=== PATIENT | female | born 1965 | race African-American/Black ===

== ENCOUNTER 2017-10-06 06:29 | Inpatient (IN) | payer OTHER ==
[2017-10-01 13:58] VITALS: BMI 45.5
[2017-10-06] MEDS ORDERED: BUPIVACAINE HCL/PF 0.5% (5MG/ML) 10 ML VIAL ONE (07:10)
[2017-10-06] MEDS ORDERED: ePHEDrine SULFATE 50 MG/1 ML AMPULE ONE (07:13)
[2017-10-06] MEDS ORDERED: ROCURONIUM BROMIDE 50 MG/5 ML VIAL ONE ×2 (07:14→08:44)
[2017-10-06] MEDS ORDERED: MIDAZOLAM HCL 2 MG/2 ML SINGLE DOSE VIAL ONE (07:14)
[2017-10-06] MEDS ORDERED: SUCCINYLCHOLINE CHLORIDE 200 MG/10 ML VIAL ONE (07:14)
[2017-10-06] MEDS ORDERED: PROPOFOL 20 ML ONE ×3 (07:14)
[2017-10-06] MEDS ORDERED: LIDOCAINE HCL/PF 2% SDV 5ML VIAL ONE (07:17)
[2017-10-06] MEDS ORDERED: ceFAZolin SODIUM 1 GM VIAL ONE (07:17)
[2017-10-06] MEDS ORDERED: DEXAMETHASONE SOD PHOSPHATE 4 MG/1 ML VIAL ONE (07:17)
[2017-10-06] MEDS ORDERED: KETOROLAC TROMETHAMINE 30 MG/1 ML VIAL ONE (07:17)
--- NOTE | 2017-10-06 08:06 | HP ---
Admitting History and Physical - Admission History of Present Illness: Morbid obesity History Source: Patient Limitations to Obtaining History: No Limitations - Past Medical History Cardiovascular: Yes: HTN, Hyperlipdemia Renal/: Yes: Other (Urinary incontinence) Endocrine: Yes: Diabetes Mellitus Additional Past Medical History: Glaucoma Osteoarthritis Endometriosis - Past Surgical History Past Surgical History: Yes: Arthrosocopy (Left knee), , Hysterectomy, Tubal Ligation Additional Past Surgical History: Laser bilateral eyes for glaucoma - Smoking History Smoking history: Never smoked Have you smoked in the past 12 months: No Aproximately how many cigarettes per day: 0 - Alcohol/Substance Use Hx Alcohol Use: No Home Medications - Allergies Allergies/Adverse Reactions: Allergies Allergy/AdvReac Type Severity Reaction Status Date / Time No Known Allergies Allergy Verified 10/06/17 07:33 - Home Medications Home Medications: Ambulatory Orders Canagliflozin [Invokana] 300 mg PO DAILY 10/01/17 Ibuprofen [Motrin -] 800 mg PO TID PRN 10/01/17 Lisinopril [Zestril] 2.5 mg PO DAILY 10/01/17 Metformin HCl [Metformin HCl ER] 1,000 mg PO BID 10/01/17 Simvastatin 40 mg PO DAILY 10/01/17 Sitagliptin Phosphate [Januvia] 100 mg PO DAILY 10/01/17 Family Disease History - Family Disease History Family History: Denies Review of Systems - Review of Systems Constitutional: denies: Chills, Fever HENT: reports: No Symptoms Neck: reports: No Symptoms Cardiovascular: denies: Chest Pain Respiratory: denies: Cough Gastrointestinal: denies: Abdominal Pain Neurological: denies: Change in LOC Pain Intensity: 0 Physical Examination Vital Signs: Vital Signs Temperature 98.3 F 10/06/17 07:25 Pulse Rate 84 10/06/17 07:25 Respiratory Rate 20 10/06/17 07:25 Blood Pressure 123/70 10/06/17 07:25 O2 Sat by Pulse Oximetry (%) 97 10/06/17 07:24 Constitutional: Yes: Calm HENT: Yes: WNL Neck: Yes: Supple Cardiovascular: Yes: WNL Respiratory: Yes: Regular Gastrointestinal: Yes: Soft, Abdomen, Obese. No: Tenderness Neurological: Yes: Alert, Oriented Problem List - Problems (1) Morbid obesity due to excess calories Code(s): E66.01 - MORBID (SEVERE) OBESITY DUE TO EXCESS CALORIES Assessment/Plan For Robotic possible open vertical sleeve gastrectomy, possible liver biopsy, upper endoscopy
[2017-10-06] MEDS ORDERED: ceFAZolin SODIUM 1 GM VIAL IVPB ONE (08:35)
[2017-10-06] MEDS ORDERED: BUPIVACAINE HCL/PF 0.5% (5MG/ML) 10 ML VIAL IJ ONE (09:26)
[2017-10-06] MEDS ORDERED: NEOSTIGMINE METHYLSULFATE 0.5 MG/ML - 10 ML MDV ONE (10:35)
[2017-10-06] MEDS ORDERED: GLYCOPYRROLATE 0.2 MG/1 ML VIAL ONE (10:35)
[2017-10-06] MEDS ORDERED: HYDROmorphone HCL CARPU-JECT 1 MG/1 ML DISP.SYRIN IVPB PRN (11:10)
[2017-10-06] MEDS ORDERED: PROMETHAZINE HCL 25 MG/1 ML VIAL IVPB PRN (11:13)
[2017-10-06] MEDS ORDERED: ONDANSETRON 4 MG/2 ML VIAL IVPUSH SCH (11:15)
[2017-10-06] MEDS ORDERED: LACTATED RINGERS SOLUTION 1,000 ML IV SCH (11:15)
[2017-10-06] MEDS ORDERED: METOCLOPRAMIDE HCL INJECTION 10 MG/2 ML VIAL IVPUSH SCH (11:15)
[2017-10-06] MEDS: ACETAMINOPHEN 1000 MG/100 ML VIAL (NON FORMULARY) IVPB SCH ×3 (11:30→22:31)
[2017-10-06 11:40] LABS: HEMATOCRIT 41.7 % (32.4-45.2); HEMOGLOBIN 12.8 GM/dL (10.7-15.3); MCH 23.8 pg (25.7-33.7); MCHC 30.7 g/dl (32.0-36.0); MEAN CELL VOLUME 77.5 fl (80-96); PLATELET COUNT 247 K/MM3 (134-434); RBC 5.38 M/mm3 (3.60-5.2); RDW 14.5 % (11.6-15.6); WHITE BLOOD COUNT 18.3 K/mm3 (4.0-10.0)
--- NOTE | 2017-10-06 11:40 | OP ---
Operative Note - Note: Operative Date: 10/06/17 Pre-Operative Diagnosis: morbid obesity Operation: robotic assisted vertical sleeve gasrectomy, endoscopy, lysis of adhesions, liver biopsy Surgeon: Andres Jimenez Glass Mechanic: Erica Aly Anesthesiologist/CLINICAL EDUCATION ASSISTANT: Grey Hillman Anesthesia: General Specimens Removed: liver biospy Estimated Blood Loss (mls): 100 Fluid Volume Replaced (mls): 1,600 Operative Report Dictated: Yes
--- NOTE | 2017-10-06 11:41 | SURG ---
Surgery Yard Switcher Note Yard Switcher: Erica Aly PA-C Date of Service: 10/06/17 Diagnosis: morbid obesity Procedure: robotic assisted vertical sleeve gastrectomy, lysis of adhesions, liver biopsy, endoscopy I was present for the entirety of the operative procedure. For further detail, please refer to operative report. Visit type - Case Type Case Type: ED Admission - Emergency Emergency Visit: Yes ED Registration Date: 10/06/17 Care time: The patient presented to the Emergency Department on the above date and was hospitalized for further evaluation of their emergent condition. - New patient This patient is new to me today: Yes Date on this admission: 10/06/17
[2017-10-06 12:34] LABS: ALBUMIN 3.1 g/dl (3.4-5.0); ALK PHOS 109 U/L (45-117); ANION GAP 9 (8-16); BILIRUBIN,TOTAL 0.3 mg/dL (0.2-1.0); BLOOD UREA NITROGEN 11 mg/dL (7-18); CALCIUM 8.7 mg/dL (8.5-10.1); CHLORIDE 102 mmol/L (98-107); CO2 27 mmol/L (21-32); CREATININE 0.8 mg/dL (0.55-1.02); GLUCOSE,RANDOM 233 mg/dL (74-106); POTASSIUM 4.5 mmol/L (3.5-5.1); SGOT/AST 135 U/L (15-37); SGPT/ALT 123 U/L (12-78); SODIUM 138 mmol/L (136-145); TOT PROT 7.1 g/dl (6.4-8.2)
[2017-10-06] MEDS: SODIUM CHLORIDE 1,000 ML IV SCH (13:51)
--- NOTE | 2017-10-06 14:54 | SPEC ---
DATE OF OPERATION: 10/06/2017 SURGEON: Andres Jimenez MD HOSPICE CONSULTANT: PAUL Bynum PREOPERATIVE DIAGNOSES: 1. Morbid obesity. 2. Hypertension. 3. Diabetes. 4. Body mass index greater than 40. POSTOPERATIVE DIAGNOSES: 1. Morbid obesity. 2. Diabetes. 3. Hypertension. 4. Body mass index greater than 40. 5. Hepatomegaly. PROCEDURE: Robotic vertical sleeve gastrectomy, robotic wedge liver biopsy, and upper endoscopy. REASON FOR PROCEDURE: This is a 52-year-old female who presented to the office for options for weight loss. She decided to proceed with a robotic vertical sleeve gastrectomy, possible open, possible liver biopsy, possible endoscopy. The risks and benefits of the procedure were explained. RISKS AND BENEFITS: After describing the different options for management of weight loss, the patient decided to proceed with a robotic laparoscopic, possible open vertical sleeve gastrectomy. The patient was seen by the respective subspecialities and cleared for surgery. The risks and benefits of the procedure were explained. These included bleeding, infection, hernia, ND, DVT, PE, injury to surrounding structures including the liver, colon, bowel, spleen, esophagus, vessel injury, nerve injury, weight regain, gastric leak, staple line leak, sleeve leak, obstruction, vitamin deficiency, hair loss, and as some of the possible complications. The patient understood and signed informed consent. DESCRIPTION OF PROCEDURE: The patient was placed supine on the operating room table. The patient underwent general endotracheal intubation. A Kamara catheter was inserted by the nursing staff. The arms were brought out at 90 degrees and secured. A foot board was placed and the legs were secured laterally with padding. The abdomen was prepped and draped in the usual sterile fashion. A time-out was performed. An incision was made superior and to the left of the umbilicus. A Veress needle was inserted. Pneumoperitoneum was established. Subsequently the Veress needle was removed. An 8-mm robotic trocar was placed under direct visualization with the laparoscope. Inspection of the abdominal cavity was performed. An 8-mm trocar was then placed in the left abdominal wall approximately 6 to 7 cm to the left of the initial trocar. An 8-mm robotic trocar was then placed in the left abdominal wall approximately 6 to 7 cm to the left of the initial trocar. A 12-mm robotic trocar was then placed in the right abdominal wall approximately 6 to 7 cm to the right of the initial trocar and an 8-mm robotic trocar placed approximately 6 to 7 cm lateral to the 12-mm trocar. A stab wound was made in the subxiphoid area and a Jessica clamp inserted and removed to dilate the tract. A Renee liver retractor was inserted. The post was secured at the bedside by the nursing staff. The patient was placed in steep reverse Trendelenburg position and the Renee liver retractor was used to secure the liver towards the anterior abdominal wall. The robot was brought over the field and docked. Dissection was performed at the console. The pylorus was identified and 6 cm proximal to it the lesser sac was entered using the vessel sealer. From this point cephalad all lateral attachments to the greater curvature of the stomach including the short gastric vessels were ligated using the vessel sealer towards the gastrosplenic and gastrophrenic ligaments. Once this was done in its entirety, all tubes within the nasal or oropharyngeal cavity including a temperature probe was confirmed to be removed by Anesthesia. The bougie was then inserted by Anesthesia. Transection of the stomach was then begun staying adjacent to the bougie, but away from the angularis. Transection of the stomach was performed near the portion of the stomach where the lesser sac was entered. Two robotic green rose were used at this location. Robotic blue rose were then used for the remainder of the transection until the greater curvature of the stomach was fully transected. Again this was done staying close to the bougie. Care was taken to stay away from the angle of His cephalad. The staple line was then inspected. Hemostasis was identified. A leak test was then performed. The stomach was clamped distally to the staple line. Irrigation solution was placed in the left upper quadrant and air insufflated by Anesthesia into the sleeve. No leaks were identified and no obstruction was identified. This was done throughout the staple line. At this point, the irrigation solution was suctioned and again hemostasis noted. A wedge liver biopsy was then performed. A portion of the left lobe of the liver was identified and an edge of it grasped. Using electrocautery a wedge of this portion of the liver was excised. The specimen was removed from the abdominal cavity and sent off the field. Hemostasis of the biopsy site as attained using electrocautery. The robotic instruments were then removed. The robot was undocked from the operative field. The 12-mm robotic trocar was removed and the greater curvature specimen removed from this site using a sponge stick llanos. The specimen was inspected and the Veress needle inserted. The specimen insufflated adequately and no leak was identified. The staple line was noted to be straight and intact. A Flex-Albert device was then used to close the fascia with a 0 Vicryl suture at this site. The liver retractor was removed under direct visualization. Pneumoperitoneum was desufflated and the fascial suture was secured. Hemostasis was noted at all incision sites and Marcaine was injected at all incision sites. All incision sites were closed using 4-0 Biosyn. Sterile dressings were applied. The patient tolerated the procedure well and was transferred to the recovery room in stable condition with a Kamara catheter intact. The patient was transferred to telemetry for further monitoring. In addition, in order to further evaluate for leak/obstruction, upper endoscopy was performed. The endoscope was inserted into the patient's esophagus, GE junction, and gastric pouch. The entirety of the gastric sleeve was inspected. No leak or obstruction was noted. The stomach was suctioned, decompressed, and the endoscope removed. Sean [id number]
--- NOTE | 2017-10-06 15:28 | OP ---
DATE OF OPERATION: 10/06/2017 ADDENDUM POSTOPERATIVE DIAGNOSES: 1. Morbid obesity. 2. Hypertension. 3. Diabetes. 4. Body mass index greater than 40. 5. Hepatomegaly. PROCEDURES: 1. Robotic vertical sleeve gastrectomy. 2. Robotic wedge liver biopsy. 3. Upper endoscopy. SPECIMEN: 1. Greater curvature of the stomach. 2. Left lobe wedge liver biopsy. ESTIMATED BLOOD LOSS: 100 mL. DRAINS: None. ANESTHESIA: GET. BOUGIE: 36-Czech. Sean [id number]
[2017-10-06] MEDS: METOCLOPRAMIDE HCL INJECTION 10 MG/2 ML VIAL IVPUSH SCH ×2 (17:30→21:26)
[2017-10-06] MEDS ORDERED: ONDANSETRON 4 MG/2 ML VIAL ONE (17:58)
[2017-10-06] MEDS ORDERED: METOCLOPRAMIDE HCL INJECTION 10 MG/2 ML VIAL ONE (17:58)
[2017-10-06] MEDS: ONDANSETRON 4 MG/2 ML VIAL IVPUSH SCH ×2 (18:04→21:28)
[2017-10-06] MEDS ORDERED: ACETAMINOPHEN INJECTION 100 ML IVPB ONE (18:06)
[2017-10-06] MEDS ORDERED: HYDROmorphone HCL CARPU-JECT 2 MG/1 ML DISP.SYRIN ONE (18:19)
[2017-10-06] MEDS: INSULIN SLIDING SCALE (NOVOLOG) 1 VIAL SQ SCH (21:25)
[2017-10-06] MEDS: ENOXAPARIN NA (PORCINE) 40 MG/0.4 ML DISP.SYRIN SQ SCH (21:27)
[2017-10-06] MEDS ORDERED: PT OWN MED DRAWER 7, Y5N ONE (21:28)
[2017-10-06] MEDS ORDERED: FAMOTIDINE 20 MG/50 ML IVPB 20 MG/50 ML MG IVPB SCH (22:00)
[2017-10-07] MEDS: SODIUM CHLORIDE 1,000 ML IV SCH ×3 (01:09→17:43)
[2017-10-07] MEDS: METOCLOPRAMIDE HCL INJECTION 10 MG/2 ML VIAL IVPUSH SCH ×4 (02:21→20:43)
[2017-10-07] MEDS: ONDANSETRON 4 MG/2 ML VIAL IVPUSH SCH ×6 (02:21→21:10)
[2017-10-07] MEDS: HYDROmorphone HCL CARPU-JECT 2 MG/1 ML DISP.SYRIN IVPB PRN ×2 (02:34→09:51)
[2017-10-07] MEDS: ACETAMINOPHEN 1000 MG/100 ML VIAL (NON FORMULARY) IVPB SCH (05:22)
[2017-10-07 07:48] LABS: HEMATOCRIT 38.3 % (32.4-45.2); MCH 24.2 pg (25.7-33.7); MCHC 31.3 g/dl (32.0-36.0); MEAN CELL VOLUME 77.4 fl (80-96); MEAN PLT VOLUME 9.1 fl (7.5-11.1); PLATELET COUNT 231 K/MM3 (134-434); RBC 4.95 M/mm3 (3.60-5.2); RDW 14.5 % (11.6-15.6); WHITE BLOOD COUNT 16.8 K/mm3 (4.0-10.0)
[2017-10-07 08:07] LABS: ALBUMIN 2.9 g/dl (3.4-5.0); ANION GAP 10 (8-16); BLOOD UREA NITROGEN 11 mg/dL (7-18); CALCIUM 8.5 mg/dL (8.5-10.1); CHLORIDE 104 mmol/L (98-107); CO2 27 mmol/L (21-32); GLUCOSE,RANDOM 123 mg/dL (74-106); POTASSIUM 4.1 mmol/L (3.5-5.1); SODIUM 141 mmol/L (136-145)
[2017-10-07 08:12] LABS: ALK PHOS 99 U/L (45-117); BILIRUBIN,TOTAL 0.6 mg/dL (0.2-1.0); CREATININE 0.7 mg/dL (0.55-1.02); SGOT/AST 274 U/L (15-37); SGPT/ALT 237 U/L (12-78); TOT PROT 6.9 g/dl (6.4-8.2)
--- NOTE | 2017-10-07 08:39 | PN ---
Progress Note (short form) - Note Progress Note: POD #1 Alert. Doing well. C/o mild incisional tenderness. Adequate pain control via prn meds. AVSS. Afebrile. Gen: alert. NAD ABD: all surgical ports c/d/i. LE: scds bilat. nt <Gibran Boyce P - Last Filed: 10/07/17 08:39> - Note Progress Note: POD 1 Pain controlled No nausea Vital Signs Period Temp Pulse Resp BP Sys/Fitzpatrick Pulse Ox Last 24 Hr 97.9 F-98.8 F 72-99 16-20 100-146/45-82 97-100 Abd soft CBC, BMP 10/07/ 05:05 10/07/17 05:05 UGI: contrast in antrum Repeat AXR in 2 hours- if contrast in small bowel, start clears <Andres Jimenez - Last Filed: 10/07/17 11:17> Problem List - Problems (1) Morbid obesity due to excess calories Assessment/Plan: POD #1 s/p robotic assisted vertical sleeve gasrectomy, endoscopy, lysis of adhesions, liver biopsy f/u UGI, if neg start on bariatric stage 1 diet Pain management prn OOB and ambulate dc planning Code(s): E66.01 - MORBID (SEVERE) OBESITY DUE TO EXCESS CALORIES <Gibran Boyce P - Last Filed: 10/07/17 08:39> - Problems (1) Morbid obesity due to excess calories Code(s): E66.01 - MORBID (SEVERE) OBESITY DUE TO EXCESS CALORIES <Andres Jimenez - Last Filed: 10/07/17 11:17>
--- NOTE | 2017-10-07 08:46 | PN ---
Progress Note (short form) - Note Progress Note: Anesthesia post op note. POD#1. S/P robotic assisted vertical sleeve gasrectomy, endoscopy, lysis of adhesions, liver biopsy. GA. Pat seen amd examined. VSS. No apparent anesthesia related complications. Signed off.
[2017-10-07] MEDS: ENOXAPARIN NA (PORCINE) 40 MG/0.4 ML DISP.SYRIN SQ SCH ×2 (10:49→21:10)
--- NOTE | 2017-10-07 11:19 | DS ---
Physical Examination Vital Signs: Vital Signs Temperature 98.4 F 10/07/17 05:31 Pulse Rate 81 10/07/17 05:31 Respiratory Rate 20 10/07/17 06:44 Blood Pressure 100/57 10/07/17 05:31 O2 Sat by Pulse Oximetry (%) 100 10/07/17 06:44 Constitutional: Yes: Calm Neck: Yes: WNL Cardiovascular: Yes: Regular Rate and Rhythm Respiratory: Yes: CTA Bilaterally Gastrointestinal: Yes: Soft Wound/Incision: Yes: Dressing Dry and Intact Neurological: Yes: Alert, Oriented Labs: CBC, BMP 10/07/17 05:05 10/07/17 05:05 Discharge Summary Reason For Visit: MORBID (SEVERE) OBESITY DUE TO EXCESS CALORIES Current Active Problems BMI 45.0-49.9, adult (Acute) Diabetes mellitus (Acute) Hepatomegaly (Acute) Hypertension (Acute) Morbid obesity due to excess calories (Acute) Procedures: Principal: Sleeve gastrectomy, wedge liver biopsy, EGD Condition: Stable - Instructions Diet, Activity, Other Instructions: [address] [place] [address] Andres Jimenez M.D. [address] [place] [address], [address] [facility] [address] [facility] [place] [address] Robotic, Bariatric and General Surgery Postoperative Instructions for Bariatric Surgery Activity: Resume normal everyday activity as tolerated. You may walk and climb stairs without any limitation. We encourage you to walk as often as you can Do not lift anything more than 10 pounds for 8 weeks. At that time, you can return to full activity, including the gym, without limitation. Do not drive a motor vehicle while taking prescribes narcotic pain medication. Wound Care: If you have a bandage in place, leave it on for 3 days. At that time you may remove the outer bandage. If there are strips of tape on the skin after removing the outer bandage, leave them in place. They will fall off by themselves. Do not remove them. If there is clear glue on the skin after removing the outer bandage, leave it in place. Do not pick at it or peel it off. You may shower after taking the outer bandage off, 3 days after your surgery. If incisions become red, warm or open, please call the office. Diet: Continue a sugar-free, non-carbonated Clear liquid diet three times a day for the first week-Stage I diet. In addition, you should drink 8 ounces of water every hour. When drinking, sips should be slow and steady, not large and quick. After the first week, call the office to be advanced to the next dietary stage. Do not advance stages until instructed. Your diet will be advanced over the phone each week. Medications/Pain Management: You may resume previous medications unless told otherwise. The pills may be swallowed whole or broken if scored. You may take the prescribed narcotic pain medication as needed. If the narcotic medication is not needed for pain control, you may take Tylenol. Avoid all other pain medications including Advil, Ibuprofen, Motrin, Aspirin, Naprosyn, Aleve, Celebrex. You will receive Pepcid. Please take this twice a day as prescribed. Dizziness,Headaches/Gas Pain: Make sure you are getting enough fluids daily. Patients on diuretics or water pills may need medication adjusted. Some fluids such as broth or Gatorade may help. Gas pains are common in the first few weeks after surgery. At times they can be worse than surgical pain. Walking can help. You can also use Mylanta, Maalox, or Gas-X. Vomiting/Nausea: This may occur if you eat too fast, don't chew, or eat too much. Go back to fluids. If the vomiting or nausea persists, call the office. Constipation/Diarrhea: You may experience a change in bowel habits. Many things affect this, including a decrease in food intake, not enough fluid and taking pain medication. Some people experience diarrhea after the barium swallow in x-ray. If either persist, call the office. Follow up: Call the office at [phone] for an appointment 2 weeks after your surgical procedure. Disposition: HOME - Home Medications Comprehensive Discharge Medication List: Ambulatory Orders Canagliflozin [Invokana] 300 mg PO DAILY 10/01/17 Ibuprofen [Motrin -] 800 mg PO TID PRN 10/01/17 Lisinopril [Zestril] 2.5 mg PO DAILY 10/01/17 Metformin HCl [Metformin HCl ER] 1,000 mg PO BID 10/01/17 Simvastatin 40 mg PO DAILY 10/01/17 Sitagliptin Phosphate [Januvia] 100 mg PO DAILY 10/01/17 Famotidine [Pepcid] 20 mg PO BID #60 tablet 10/06/17 Oxycodone HCl/Acetaminophen [Percocet 5-325 mg Tablet] 1 - 2 tab PO Q6H #28 tab MDD 4 10/06/17
[2017-10-07] MEDS: INSULIN SLIDING SCALE (NOVOLOG) 1 VIAL SQ SCH ×2 (12:36→17:43)
--- NOTE | 2017-10-07 15:32 | PATH ---
Surgical Pathology Report Patient Name: ROSA LONG [facility]. Rec. #: [id number] /Age/Gender: 1965 (Age: 52) / F Account: [id number] Location: 4 W TELEMETRY U Taken: 10/06/2017 Received: 10/06/2017 Reported: 10/07/2017 Physicians: Andres Jimenez M.D. Specimen(s) Received A: GREATER CURVATURE OF STOMACH B: LIVER BIOPSY Clinical History Severe morbid obesity Final Diagnosis A. STOMACH, GREATER CURVATURE, LAPAROSCOPIC VERTICAL SLEEVE GASTRECTOMY: PORTION OF STOMACH WITH MILD CHRONIC GASTRITIS. IMMUNOHISTOCHEMICAL STAIN FOR H. PYLORI IS NEGATIVE. B. LIVER, BIOPSY: STEATOHEPATITIS, MILD; MODERATE STEATOSIS (~50%). MILD PERIVENULAR, MILD PERISINUSOIDAL, PORTAL AND FOCAL PERIPORTAL FIBROSIS (STAGE I OF 4). SEE COMMENT. Comment: Biopsy is subcapsular with areas of thermal artifact. The liver parenchyma demonstrates moderate mixed macro and macrovesicular steatosis (~50%). Focal lymphocytic infiltrate is seen in portal tracts. No significant interface activity is present. No significant bile injury is seen. No granulomas are present. Focal hepatocyte ballooning is noted. No definitive Myla hyaline is identified. The trichrome stain highlights mild perivenular, mild perisinusoidal, portal and focal mild periportal fibrosis. No increase in iron seen by Iron special stain. Overall, findings show mild steatohepatitis and moderate steatosis; stage 1 of 4 (Brunt). Etiologies include alcoholic and non-alcoholic liver injury including metabolic conditions, drug or toxin injury. Suggest clinical and serologic correlation. Electronically Signed Sheri Raza M.D. Gross Description A. Received in formalin, labeled "greater curvature of stomach," is a 96 gram, 18.5 x 3.0 x 2.5 cm. portion of stomach with a stapled margin of resection. The serosa is pires-leon with minimal attached fat. The mucosa is pires-pink with normal folds. No mucosal masses are identified. Server Security Administrator sections are submitted in one cassette. B. Received in formalin labeled "liver biopsy," is a 2.3 x 1.2 x 0.6 cm pires-pink, irregular portion of soft tissue, consistent with a liver biopsy. The specimen is bisected and entirely submitted in one cassette. DL/10/06/2017 [facility]10/06/2017
[2017-10-07] MEDS ORDERED: oxyCODONE HCL 5 MG TABLET PO PRN (16:45)
[2017-10-07] MEDS ORDERED: ACETAMINOPHEN 325 MG TABLET (FP) PO PRN (16:45)
[2017-10-07] MEDS: FAMOTIDINE IV 20 MG/12 ML VIAL IVPB SCH (21:44)
[2017-10-08] MEDS: SODIUM CHLORIDE 1,000 ML IV SCH (02:10)
[2017-10-08] MEDS: METOCLOPRAMIDE HCL INJECTION 10 MG/2 ML VIAL IVPUSH SCH ×2 (02:36→09:09)
[2017-10-08] MEDS: ONDANSETRON 4 MG/2 ML VIAL IVPUSH SCH ×3 (02:36→10:54)
[2017-10-08] MEDS: INSULIN SLIDING SCALE (NOVOLOG) 1 VIAL SQ SCH (06:08)
[2017-10-08 08:28] VITALS: BP 148/71; PULSE 90; TEMP 99.4
[2017-10-08] MEDS ORDERED: PT OWN MED DRAWER 7, Y5N ONE (09:03)
[2017-10-08] MEDS: ENOXAPARIN NA (PORCINE) 40 MG/0.4 ML DISP.SYRIN SQ SCH (09:10)
[2017-10-08] MEDS: FAMOTIDINE IV 20 MG/12 ML VIAL IVPB SCH (10:54)
== END 2017-10-08 11:33 | disposition home or self-care (01) | DRG 621 ==
LOC: JSAMEDAYSX 06:29 → EDSTATUS 08:00 → J4W 20:00 → J6S 10-07 18:52
PROVIDERS: ADMIT Surgery; ATTEND Surgery
PROC: 0DB64Z3 Excision of Stomach, Percutaneous Endoscopic Approach, Vertical (ICD-10-PCS; principal; 2017-10-06 08:00)
PROC: 0FB24ZX Excision of Left Lobe Liver, Percutaneous Endoscopic Approach, Diagnostic (ICD-10-PCS; 2017-10-06 08:00)
PROC: 0DJ08ZZ Inspection of Upper Intestinal Tract, Via Natural or Artificial Opening Endoscopic (ICD-10-PCS; 2017-10-06 08:00)
DX: E66.01 Morbid (severe) obesity due to excess calories (principal); Z68.42 Body mass index [BMI] 45.0-49.9, adult; I10 Essential (primary) hypertension; E78.5 Hyperlipidemia, unspecified; E11.9 Type 2 diabetes mellitus without complications; N39.498 Other specified urinary incontinence; H40.89 Other specified glaucoma; M19.90 Unspecified osteoarthritis, unspecified site; N80.9 Endometriosis, unspecified; R16.0 Hepatomegaly, not elsewhere classified
CPT/HCPCS: 36415; 74020-TC; 74241-TC; 80053; 84703; 85027; 86850; 86900; 86901; 88305-TC; 94760

== ENCOUNTER 2018-07-10 08:16 | Emergency (ER) | payer OTHER ==
[2018-07-10 08:31] VITALS: BP 145/93; PULSE 61; TEMP 98.6; BMI 36.3
[2018-07-10] MEDS ORDERED: KETOROLAC TROMETHAMINE 60 MG/2 ML VIAL IM ONE (08:32)
[2018-07-10] MEDS ORDERED: CYCLOBENZAPRINE HCL 10 MG TABLET (FP) PO ONE (08:32)
[2018-07-10] MEDS ORDERED: KETOROLAC TROMETHAMINE 60 MG/2 ML VIAL ONE (08:34)
[2018-07-10] MEDS ORDERED: CYCLOBENZAPRINE HCL 10 MG TABLET (FP) ONE (08:34)
--- NOTE | 2018-07-10 08:37 | PDOC ---
History of Present Illness - General Chief Complaint: Pain, Acute Stated Complaint: RIGHT Shoulder PAIN Time Seen by Provider: 07/10/18 08:31 History Source: Patient Exam Limitations: No Limitations - History of Present Illness Initial Comments: 07/10/18 08:18 and last night did some heavy lifting and felt an acute onset of pain in her left shoulder that extends up to her neck and into the scalp muscles. States use some BenGay but had minimal resolved. States has difficulty lifting her arm now. No fevers, no chest pain or palpitations no other injury. Occurred: reports: just prior to arrival, this morning Severity: reports: moderate Pain Location: reports: back, neck, upper extremity Modifying Factors: improves with: None Loss of Consciousness: no loss of consciousness Associated Symptoms (Fall): denies symptoms Past History - Travel Traveled outside of the country in the last 30 days: No Close contact w/someone who was outside of country & ill: No - Past Medical History Allergies/Adverse Reactions: Allergies Allergy/AdvReac Type Severity Reaction Status Date / Time No Known Allergies Allergy Verified 07/10/18 08:27 Home Medications: Ambulatory Orders Canagliflozin [Invokana] 300 mg PO DAILY 10/01/17 Lisinopril [Zestril] 2.5 mg PO DAILY 10/01/17 Metformin HCl [Metformin HCl ER] 1,000 mg PO BID 10/01/17 Simvastatin 40 mg PO DAILY 10/01/17 Sitagliptin Phosphate [Januvia] 100 mg PO DAILY 10/01/17 Cyclobenzaprine HCl 10 mg PO Q8H PRN #14 tablet 07/10/18 Anemia: No Asthma: No Cancer: No Cardiac Disorders: No CVA: No COPD: No CHF: No Dementia: No Diabetes: Yes (NIDDM) GI Disorders: No Disorders: No HTN: Yes Hypercholesterolemia: Yes Liver Disease: No Seizures: No Thyroid Disease: No - Surgical History Abdominal Surgery: Yes (hysterectomy 2009) Appendectomy: No Cardiac Surgery: No Cholecystectomy: No Lung Surgery: No Neurologic Surgery: No Orthopedic Surgery: Yes (LEFT KNEE ARTHROSCOPY) - Suicide/Smoking/Psychosocial Hx Smoking Status: No Smoking History: Never smoked Have you smoked in the past 12 months: No Number of Cigarettes Smoked Daily: 0 Information on smoking cessation initiated: No Hx Alcohol Use: No Drug/Substance Use Hx: No Substance Use Type: None Hx Substance Use Treatment: No Review of Systems - Review of Systems Able to Perform ROS?: Yes Is the patient limited Guyanese proficient: Yes Constitutional: Yes: Symptoms Reported, See HPI, Malaise. No: Fever HEENTM: Yes: See HPI. No: Symptoms Reported Respiratory: Yes: See HPI. No: Symptoms reported ABD/GI: Yes: Symptoms Reported, See HPI : No: Symptoms Reported ( ) Musculoskeletal: Yes: Symptoms Reported, See HPI, Back Pain, Muscle Pain, Joint Stiffness Integumentary: Yes: See HPI. No: Symptoms Reported All Other Systems: Reviewed and Negative *Physical Exam - Vital Signs Last Vital Signs Temp Pulse Resp BP Pulse Ox 98.6 F 61 18 145/93 100 07/10/18 08:07/10/18 08:27 07/10/18 08:07/10/18 08:07/10/18 08:27 - Physical Exam General Appearance: Yes: Nourished, Appropriately Dressed, Apparent Distress, Moderate Distress HEENT: positive: ERYN, Normal ENT Inspection, Normal Voice, TMs Normal, Pharynx Normal Neck: positive: Tender (tenderness reproduced along the sternocleidomastoid belly, with its insertion at occiput and upper trapezius. Reproduced tenderness to shoulder and neck with point pressure midpoint belly of those muscles. Has no spine tenderness, range of motion is limited secondary to this pain and spasm. Has strong grasp, flexion and extension to hands and elbow.), Supple Respiratory/Chest: positive: Lungs Clear. negative: Chest Tender Musculoskeletal: positive: Normal Inspection, Muscle Spasm. negative: Vertebral Tenderness Extremity: positive: Normal Capillary Refill, Normal Inspection. negative: Normal Range of Motion Neurologic: positive: chief safety officer II-XII NML intact, Fully Oriented, Alert, Normal Mood/ Affect, Normal Response, Motor Strength 5/5 Progress Note - Progress Note Progress Note: Neck strain/upper back strain. Will treat with NSAIDs and cyclobenzaprine *DC/Admit/Observation/Transfer Diagnosis at time of Disposition: Muscle strain - Discharge Dispostion Disposition: HOME Condition at time of disposition: Stable Decision to Admit order: No - Prescriptions Prescriptions: Cyclobenzaprine HCl 10 mg PO Q8H PRN #14 tablet PRN Reason: spasm - Referrals Referrals: Melinda Bravo MD [Primary Care Provider] - - Patient Instructions Printed Discharge Instructions: DI for Muscle Strain Additional Instructions: Rest, no heavy lifting or exercise until pain is resolved Hot soaks to neck and low back as often as possible/hot showers or Jacuzzis No massage or therapy until spasm is gone Continue Naprosyn 500 mg tablet, 1 tablet every 12 hours for the next 3 days then as needed for pain and swelling Cyclobenzaprine 1-10mg every 8 hours as needed for spasm If not significant improvement within 24 hours with medication and rest regime, followup with private physician for change in medications and /or therapy. - Post Discharge Activity Forms/Work/School Notes: Back to Work
== END 2018-07-10 08:58 | disposition home or self-care (01) ==
LOC: JERFT 08:16 → JER 08:16 → JERFT 08:58
PROC: 3E0233Z Introduction of Anti-inflammatory into Muscle, Percutaneous Approach (ICD-10-PCS; principal; 2018-07-10)
DX: S46.812A Strain of other muscles, fascia and tendons at shoulder and upper arm level, left arm, initial encounter (principal); X50.9XXA Other and unspecified overexertion or strenuous movements or postures, initial encounter; Y93.89 Activity, other specified; Y92.89 Other specified places as the place of occurrence of the external cause; Y99.8 Other external cause status
CPT/HCPCS: 99281-25

== ENCOUNTER 2018-11-14 08:03 | Emergency (ER) | payer OTHER ==
[2018-11-14 08:08] VITALS: BP 143/80; PULSE 76; TEMP 98.4; BMI 36.2
[2018-11-14] MEDS ORDERED: IBUPROFEN 400 MG TABLET (FP) PO ONE ×2 (08:17→08:34)
--- NOTE | 2018-11-14 08:24 | PDOC ---
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 Has taken no medication for relief of pain. Timing/Duration: unsure, 24 hours Severity: mild, moderate Associated Symptoms: reports: cough, fever/chills, malaise. denies: nausea/ vomiting Past History - Travel Traveled outside of the country in the last 30 days: No Close contact w/someone who was outside of country & ill: No - Past Medical History Allergies/Adverse Reactions: Allergies Allergy/AdvReac Type Severity Reaction Status Date / Time No Known Allergies Allergy Verified 11/14/18 08:08 Home Medications: Ambulatory Orders Lisinopril [Zestril] 2.5 mg PO DAILY 10/01/17 Simvastatin 40 mg PO DAILY 10/01/17 Sitagliptin Phosphate [Januvia] 100 mg PO DAILY 10/01/17 metFORMIN HCL [Metformin HCl ER] 1,000 mg PO BID 10/01/17 Anemia: No Asthma: No Cancer: No Cardiac Disorders: No CVA: No COPD: No CHF: No Dementia: No Diabetes: Yes (NIDDM) GI Disorders: No Disorders: No HTN: Yes Hypercholesterolemia: Yes Liver Disease: No Seizures: No Thyroid Disease: No - Surgical History Abdominal Surgery: Yes (hysterectomy 2008) Appendectomy: No Cardiac Surgery: No Cholecystectomy: No Lung Surgery: No Neurologic Surgery: No Orthopedic Surgery: Yes (LEFT KNEE ARTHROSCOPY) - Suicide/Smoking/Psychosocial Hx Smoking Status: No Smoking History: Never smoked Have you smoked in the past 12 months: No Number of Cigarettes Smoked Daily: 0 Hx Alcohol Use: No Drug/Substance Use Hx: No Substance Use Type: None Hx Substance Use Treatment: No Review of Systems - Review of Systems Able to Perform ROS?: Yes Is the patient limited Yi proficient: Yes Constitutional: Yes: Symptoms Reported, See HPI, Chills, Fever, Malaise HEENTM: Yes: Symptoms Reported, See HPI, Nose Congestion Respiratory: Yes: Symptoms reported, See HPI, Cough. No: Wheezing ABD/GI: Yes: Symptoms Reported, See HPI, Nausea. No: Vomiting : Yes: Symptoms Reported Musculoskeletal: Yes: Symptoms Reported, See HPI, Muscle Weakness Integumentary: No: Symptoms Reported Neurological: Yes: See HPI, Headache. No: Symptoms reported All Other Systems: Reviewed and Negative *Physical Exam - Vital Signs Last Vital Signs Temp Pulse Resp BP Pulse Ox 98.4 F 76 18 143/80 98 11/14/18 08:05 11/14/18 08:05 11/14/18 08:05 11/14/18 08:05 11/14/18 08:05 - Physical Exam General Appearance: Yes: Nourished, Appropriately Dressed, Apparent Distress HEENT: positive: ERYN, Normal ENT Inspection, Pharynx Normal, Nasal Congestion, Rhinorrhea, Sinus Tenderness. negative: TMs Normal (attempt but landmarks), Pharyngeal Erythema, Tonsillar Exudate Neck: positive: Supple, Lymphadenopathy (R), Lymphadenopathy (L). negative: Tender Respiratory/Chest: positive: Lungs Clear, Normal Breath Sounds (but coarse). negative: Chest Tender Gastrointestinal/Abdominal: positive: Normal Bowel Sounds, Soft. negative: Tender Musculoskeletal: positive: Normal Inspection. negative: CVA Tenderness Extremity: positive: Normal Capillary Refill, Normal Inspection Integumentary: positive: Dry, Warm, Pale Neurologic: positive: hospitalist nocturnist physician II-XII NML intact, Fully Oriented, Alert, Normal Mood/ Affect, Normal Response, Motor Strength 5/5 Moderate Sedation - Procedure Monitoring Vital Signs: Procedure Monitoring Vital Signs Temperature 98.4 F 11/14/18 08:05 Pulse Rate 76 11/14/18 08:05 Respiratory Rate 18 11/14/18 08:05 Blood Pressure 143/80 11/14/18 08:05 O2 Sat by Pulse Oximetry (%) 98 11/14/18 08:05 *DC/Admit/Observation/Transfer Diagnosis at time of Disposition: Upper respiratory infection, viral - Discharge Dispostion Disposition: HOME Condition at time of disposition: Stable Decision to Admit order: No - Referrals - Patient Instructions Printed Discharge Instructions: DI for Viral Upper Respiratory Infection -- Adult Additional Instructions: Rest, drink lots of fluids: Teas, water, soups, Pedialyte Saltwater gargles Steamy showers/seem to face break up mucus Avoid contact with others until fevers and cough resolved Lots of handwashing and good hygiene Continue [id number] medications for symptomatic relief Tylenol or Motrin for fever and pain Followup with private physician in one to 2 days as needed Return to emergency department for worsened symptoms, fevers, dehydration - Post Discharge Activity Forms/Work/School Notes: Back to Work
== END 2018-11-14 08:58 | disposition home or self-care (01) ==
LOC: JERFT 08:03
DX: J06.9 Acute upper respiratory infection, unspecified (principal); E11.9 Type 2 diabetes mellitus without complications; I10 Essential (primary) hypertension; E78.00 Pure hypercholesterolemia, unspecified
CPT/HCPCS: 87804; 99281-25

== ENCOUNTER 2019-04-27 07:26 | Emergency (ER) | payer OTHER ==
[2019-04-27 07:35] VITALS: BP 122/67; PULSE 80; TEMP 97.7; BMI 52.2
[2019-04-27] MEDS ORDERED: TETRACAINE 0.5% OPHTH SOLN 2 ML BOTTLE OD ONE (07:45)
[2019-04-27] MEDS ORDERED: TETRACAINE 0.5% OPHTH SOLN 2 ML BOTTLE ONE ×2 (07:48→08:01)
--- NOTE | 2019-04-27 08:05 | PDOC ---
History of Present Illness - General Chief Complaint: Eye Problem Stated Complaint: RIGHT EYE PAIN AND SWELLING Time Seen by Provider: 04/27/19 07:42 History Source: Patient Exam Limitations: No Limitations Past History - Travel Traveled outside of the country in the last 30 days: No Close contact w/someone who was outside of country & ill: No - Past Medical History Allergies/Adverse Reactions: Allergies Allergy/AdvReac Type Severity Reaction Status Date / Time No Known Allergies Allergy Verified 04/27/19 07:37 Home Medications: Ambulatory Orders Lisinopril [Zestril] 2.5 mg PO DAILY 10/01/17 Simvastatin 40 mg PO DAILY 10/01/17 Sitagliptin Phosphate [Januvia] 100 mg PO DAILY 10/01/17 metFORMIN HCL [Metformin HCl ER] 1,000 mg PO BID 10/01/17 Erythromycin 0.5% Eye Ointment [Erythromycin 0.5% Eye Ointment -] 1 applic OD TID #1 tube 04/27/19 Anemia: No Asthma: No Cancer: No Cardiac Disorders: No CVA: No COPD: No CHF: No Dementia: No Diabetes: Yes (NIDDM) GI Disorders: No Disorders: No HTN: Yes Hypercholesterolemia: Yes Liver Disease: No Seizures: No Thyroid Disease: No - Surgical History Abdominal Surgery: Yes (hysterectomy 2008) Appendectomy: No Cardiac Surgery: No Cholecystectomy: No Lung Surgery: No Neurologic Surgery: No Orthopedic Surgery: Yes (LEFT KNEE ARTHROSCOPY) - Immunization History Immunization Up to Date: No - Suicide/Smoking/Psychosocial Hx Smoking Status: No Smoking History: Never smoked Have you smoked in the past 12 months: No Number of Cigarettes Smoked Daily: 0 Information on smoking cessation initiated: No Hx Alcohol Use: No Drug/Substance Use Hx: No Substance Use Type: None Hx Substance Use Treatment: No Review of Systems - Review of Systems Able to Perform ROS?: Yes Comments:: 04/27/19 08:57 CONSTITUTIONAL: Absent: fever, chills, diaphoresis, generalized weakness, malaise, loss of appetite HEENT: Present: eye pain Absent: rhinorrhea, nasal congestion, throat pain, throat swelling, difficulty swallowing, mouth swelling, ear pain, visual Changes SKIN: Absent: rash, itching, pallor NEUROLOGIC: Absent: headache, focal weakness or paresthesias, dizziness, unsteady gait, seizure, mental status changes, bladder or bowel incontinence PSYCHIATRIC: Absent: anxiety, depression, suicidal or homicidal ideation, hallucinations. Is the patient limited [place]er proficient: No *Physical Exam - Vital Signs Last Vital Signs Temp Pulse Resp BP Pulse Ox 97.7 F 80 16 122/67 100 04/27/19 07:33 04/27/19 07:33 04/27/19 07:33 04/27/19 07:33 04/27/19 07:33 - Physical Exam Comments: 04/27/19 09:05 GENERAL: The patient is awake, alert, and fully oriented, in no acute distress. HEAD: Normal with no signs of trauma. EYES: Pupils equal, round and reactive to light, extraocular movements intact, sclera anicteric, L conjunctiva clear. R conjunctiva is injected with purulent drainage noted to the medial canthus. Small corneal abrasion to the 7 o'clock position. EXTREMITIES: Normal range of motion, no edema. NEUROLOGICAL: Normal speech, normal gait. PSYCH: Normal mood, normal affect. SKIN: Warm, Dry, normal turgor, no rashes or lesions noted. Medical Decision Making - Medical Decision Making 04/27/19 09:06 The patient is a 53-year-old female past history of glaucoma, diabetes, who presents here today with right eye pain. The patient states she was working last night when her eye became red and she noticed discharge coming from the eye. She states that she feels like there is something in the eye and that it feels gritty. Denies fevers, chills, visual changes, blurry vision, spots and floaters. Pt states this does not feel like her glaucoma pain. A/P: Conjunctivitis On exam the right sclera is injected with purulent drainage noted at the medial canthus. Fluorescein stain notes a small corneal abrasion to the 7 o'clock position. Visual acuity intact We'll place patient on erythromycin ointment and told to follow up with ophthalmology today or tomorrow. Discharge home I discussed the physical exam findings, ancillary test results and final diagnoses with the patient. I answered all of the patient's questions. The patient was satisfied with the care received and felt comfortable with the discharge plan and treatment plan. The Patient agrees to follow up with the primary care physician/specialist within 24-72 hours. Return precautions were given. *DC/Admit/Observation/Transfer Diagnosis at time of Disposition: Conjunctivitis Qualifiers: Conjunctivitis type: acute Acute conjunctivitis type: bacterial Laterality: right Qualified Code(s): H10.31 - Unspecified acute conjunctivitis, right eye - Discharge Dispostion Condition at time of disposition: Stable - Prescriptions Prescriptions: Erythromycin 0.5% Eye Ointment [Erythromycin 0.5% Eye Ointment -] 1 applic OD TID #1 tube - Referrals Referrals: Dorene Ruiz MD [Staff Physician] - - Patient Instructions Printed Discharge Instructions: DI for Conjunctivitis Additional Instructions: You have conjunctivitis. This is an eye infection. Please use erythromycin ointment twice a day to the affected eye for one week. Please wash her hands frequently Do not wear contact lenses until your infection clears Follow up with ophthalmology in 24-48 hours Return to the ER for visual changes, blurry vision, or any new or worsening symptoms. - Post Discharge Activity Forms/Work/School Notes: Back to Work
--- NOTE | 2019-04-27 08:11 | PDOC ---
*Physical Exam - Vital Signs Last Vital Signs Temp Pulse Resp BP Pulse Ox 97.7 F 80 16 122/67 100 04/27/19 07:33 04/27/19 07:33 04/27/19 07:33 04/27/19 07:33 04/27/19 07:33 - Physical Exam Comments: 04/27/19 08:09 The patient was examined by [PAUL Carter] under my direct supervision. I personally evaluated the patient. I concur with the above findings and the plan of care. ED Treatment Course - Medications Given in the ED: ED Medications Discontinued Medications Generic Name Dose Route Start Last Admin Trade Name Kelly PRN Reason Stop Dose Admin Tetracaine HCl 1 drop 04/27/19 07:45 04/27/19 07:50 Pontocaine OD 04/27/19 07:46 1 drop ONCE ONE Administration *DC/Admit/Observation/Transfer Diagnosis at time of Disposition: Conjunctivitis Qualifiers: Conjunctivitis type: acute Acute conjunctivitis type: bacterial Laterality: right Qualified Code(s): H10.31 - Unspecified acute conjunctivitis, right eye - Discharge Dispostion Condition at time of disposition: Stable - Prescriptions Prescriptions: Erythromycin 0.5% Eye Ointment [Erythromycin 0.5% Eye Ointment -] 1 applic OD TID #1 tube - Referrals Referrals: Dorene Ruiz MD [Staff Physician] - - Patient Instructions Printed Discharge Instructions: DI for Conjunctivitis Additional Instructions: You have conjunctivitis. This is an eye infection. Please use erythromycin ointment twice a day to the affected eye for one week. Please wash her hands frequently Do not wear contact lenses until your infection clears Follow up with ophthalmology in 24-48 hours Return to the ER for visual changes, blurry vision, or any new or worsening symptoms. - Post Discharge Activity Forms/Work/School Notes: Back to Work
== END 2019-04-27 08:31 | disposition home or self-care (01) ==
LOC: JER 07:26
DX: H10.31 Unspecified acute conjunctivitis, right eye (principal); E11.9 Type 2 diabetes mellitus without complications; H40.9 Unspecified glaucoma
CPT/HCPCS: 99281-25

== ENCOUNTER 2019-09-22 08:09 | Emergency (ER) | payer OTHER ==
[2019-09-22 08:13] VITALS: BP 127/70; PULSE 90; TEMP 97.9; BMI 51.6
[2019-09-22] MEDS ORDERED: KETOROLAC TROMETHAMINE 60 MG/2 ML VIAL IM ONE (08:14)
[2019-09-22] MEDS ORDERED: KETOROLAC TROMETHAMINE 60 MG/2 ML VIAL ONE (08:15)
--- NOTE | 2019-09-22 08:48 | PDOC ---
History of Present Illness - General Chief Complaint: Pain Stated Complaint: PAIN Time Seen by Provider: 09/22/19 08:14 History Source: Patient Exam Limitations: No Limitations - History of Present Illness Initial Comments: 09/22/19 08:53 54-year-old female presents to ED with complaints of left sided neck stiffness upon awakening this morning. Patient states no recent trauma difficulty swallowing, posterior neck pain, or any other complaints. Patient states took nothing for the pain and since she had to come to work today decided to be seen in the ER. Patient is an employee in the emergency room. Is this a multiple visit Asthma Patient?: No Timing/Duration: 1-3 hours Severity: mild, moderate Associated Symptoms: reports: denies symptoms Past History - Travel Traveled outside of the country in the last 30 days: No Close contact w/someone who was outside of country & ill: No - Past Medical History Allergies/Adverse Reactions: Allergies Allergy/AdvReac Type Severity Reaction Status Date / Time No Known Allergies Allergy Verified 09/22/19 08:10 Home Medications: Ambulatory Orders Lisinopril [Zestril] 2.5 mg PO DAILY 10/01/17 Simvastatin 40 mg PO DAILY 10/01/17 Sitagliptin Phosphate [Januvia] 100 mg PO DAILY 10/01/17 metFORMIN HCL [Metformin HCl ER] 1,000 mg PO BID 10/01/17 Anemia: No Asthma: No Cancer: No Cardiac Disorders: No CVA: No COPD: No CHF: No Dementia: No Diabetes: Yes (NIDDM) GI Disorders: No Disorders: No HTN: Yes Hypercholesterolemia: Yes Liver Disease: No Seizures: No Thyroid Disease: No - Surgical History Abdominal Surgery: Yes (hysterectomy 2008) Appendectomy: No Cardiac Surgery: No Cholecystectomy: No Lung Surgery: No Neurologic Surgery: No Orthopedic Surgery: Yes (LEFT KNEE ARTHROSCOPY) - Immunization History Immunization Up to Date: No - Psycho Social/Smoking Cessation Hx Smoking Status: No Smoking History: Never smoked Have you smoked in the past 12 months: No Number of Cigarettes Smoked Daily: 0 Hx Alcohol Use: No Drug/Substance Use Hx: No Substance Use Type: None Hx Substance Use Treatment: No Patient Lives Alone: No Lives with/in: spouse/SO Review of Systems - Review of Systems Able to Perform ROS?: Yes Constitutional: No: Symptoms Reported HEENTM: No: Symptoms Reported Respiratory: No: Symptoms reported Cardiac (ROS): No: Symptoms Reported ABD/GI: No: Symptoms Reported : No: Symptoms Reported Musculoskeletal: Yes: Neck Pain, Joint Stiffness Integumentary: No: Symptoms Reported Neurological: No: Symptoms reported *Physical Exam - Vital Signs Last Vital Signs Temp Pulse Resp BP Pulse Ox 97.9 F 90 18 127/70 99 09/22/19 08:12 09/22/19 08:12 09/22/19 08:12 09/22/19 08:12 09/22/19 08:12 - Physical Exam General Appearance: Yes: Nourished, Appropriately Dressed. No: Apparent Distress Neck: positive: Supple, Decreased range of motion, Tender lateral (Left trapezius). negative: Tender midline Extremity: positive: Normal Inspection Integumentary: positive: Normal Color, Warm, Moist Neurologic: positive: Motor Strength 5/5 (Ambulatory) ED Treatment Course - Medications Given in the ED: ED Medications Discontinued Medications Generic Name Dose Route Start Last Admin Trade Name Freq PRN Reason Stop Dose Admin Ketorolac Tromethamine 60 mg 09/22/19 08:14 09/22/19 08:18 Toradol Injection - IM 09/22/19 08:15 60 mg ONCE ONE Administration Medical Decision Making - Medical Decision Making 09/22/19 08:55 Chief complaint: Stiff neck upon awakening this morning. Exam: Patient with left trapezius tenderness Plan: Likely trapezius muscle spasm. Will give Toradol IM with recommendations upon discharge Discharge - Discharge Information Problems reviewed: Yes Clinical Impression/Diagnosis: Trapezius muscle spasm Condition: Improved Disposition: HOME - Follow up/Referral - Patient Discharge Instructions Patient Printed Discharge Instructions: DI for Neck Pain Additional Instructions: Apply heating pad to the affected area. Avoid movement to your left side. May take Tylenol and Motrin as needed for discomfort. May also try light massage to area - Post Discharge Activity
== END 2019-09-22 09:14 | disposition home or self-care (01) ==
LOC: JER 08:09
PROC: 3E0233Z Introduction of Anti-inflammatory into Muscle, Percutaneous Approach (ICD-10-PCS; principal; 2019-09-22)
DX: M62.838 Other muscle spasm (principal); E11.9 Type 2 diabetes mellitus without complications; I10 Essential (primary) hypertension; E78.00 Pure hypercholesterolemia, unspecified
CPT/HCPCS: 99281-25

== ENCOUNTER 2019-11-28 08:15 | Emergency (ER) | payer OTHER ==
[2019-11-28 08:22] VITALS: BP 143/78; PULSE 90; TEMP 98.8; BMI 30.3
--- NOTE | 2019-11-28 08:46 | PDOC ---
History of Present Illness - General Chief Complaint: Cold Symptoms Stated Complaint: Cold Symptoms Time Seen by Provider: 11/28/19 08:21 History Source: Patient - History of Present Illness Timing/Duration: reports: other Past History - Past Medical History Allergies/Adverse Reactions: Allergies Allergy/AdvReac Type Severity Reaction Status Date / Time No Known Allergies Allergy Verified 11/28/19 08:20 Home Medications: Ambulatory Orders Lisinopril [Zestril] 2.5 mg PO DAILY 10/01/17 Simvastatin 40 mg PO HS 10/01/17 Sitagliptin Phosphate [Januvia] 100 mg PO DAILY 10/01/17 metFORMIN HCL [Metformin HCl ER] 1,000 mg PO BID 10/01/17 Anemia: No Asthma: No Cancer: No Cardiac Disorders: No CVA: No COPD: No CHF: No Dementia: No Diabetes: Yes (NIDDM) GI Disorders: No Disorders: No HTN: Yes Hypercholesterolemia: Yes Liver Disease: No Seizures: No Thyroid Disease: No - Surgical History Abdominal Surgery: Yes (hysterectomy 2008) Appendectomy: No Cardiac Surgery: No Cholecystectomy: No Lung Surgery: No Neurologic Surgery: No Orthopedic Surgery: Yes (LEFT KNEE ARTHROSCOPY) - Immunization History Immunization Up to Date: No - Psycho Social/Smoking Cessation Hx Smoking Status: No Smoking History: Never smoked Have you smoked in the past 12 months: No Number of Cigarettes Smoked Daily: 0 Hx Alcohol Use: No Drug/Substance Use Hx: No Substance Use Type: None Hx Substance Use Treatment: No Review of Systems - Review of Systems Constitutional: No: Chills, Fever HEENTM: Yes: Nose Congestion, Throat Pain. No: Ear Pain Respiratory: No: Cough, Shortness of Breath Cardiac (ROS): No: Chest Pain *Physical Exam - Vital Signs Last Vital Signs Temp Pulse Resp BP Pulse Ox 98.8 F 90 18 143/78 99 11/28/19 08:21 11/28/19 08:21 11/28/19 08:21 11/28/19 08:21 11/28/19 08:21 - Physical Exam General Appearance: Yes: Appropriately Dressed. No: Apparent Distress HEENT: positive: Normal ENT Inspection, Normal Voice, TMs Normal, Pharynx Normal. negative: Scleral Icterus (R), Scleral Icterus (L) Neck: positive: Supple Respiratory/Chest: positive: Lungs Clear, Normal Breath Sounds. negative: Respiratory Distress Cardiovascular: positive: Regular Rate, S1, S2 Integumentary: positive: Dry, Warm Neurologic: positive: Fully Oriented, Alert, Normal Mood/Affect Medical Decision Making - Medical Decision Making 11/28/19 08:45 54-year-old female, history of diabetes and high blood pressure, here with body aches with cough, congestion and sore throat x several days. No fever or chills. Not currently taking anything for symptoms. Patient works as an human service technician at [employer] see exam Viral illness, ? flu -flu/strep pending 11/28/19 09:06 Flu and strep negative. Will dc with supportive treatment Discharge - Discharge Information Problems reviewed: Yes Clinical Impression/Diagnosis: Viral illness Condition: Good Disposition: HOME - Follow up/Referral Referrals: Melinda Bravo MD [Primary Care Provider] - - Patient Discharge Instructions Patient Printed Discharge Instructions: DI for Viral Syndrome - Post Discharge Activity
== END 2019-11-28 09:21 | disposition home or self-care (01) ==
LOC: JERFT 08:15
DX: B34.9 Viral infection, unspecified (principal); I10 Essential (primary) hypertension; E11.9 Type 2 diabetes mellitus without complications; Z79.84 Long term (current) use of oral hypoglycemic drugs; E78.00 Pure hypercholesterolemia, unspecified; Z90.710 Acquired absence of both cervix and uterus
CPT/HCPCS: 87070; 87804; 87880; 99282-25

== ENCOUNTER 2020-04-23 07:26 | Emergency (ER) | payer OTHER ==
--- NOTE | 2020-04-23 07:47 | PDOC ---
Rapid Medical Evaluation Chief Complaint: Eye Problem Time Seen by Provider: 04/23/20 07:41 Medical Evaluation: Allergies Allergy/AdvReac Type Severity Reaction Status Date / Time No Known Allergies Allergy Verified 11/28/19 08:20 04/23/20 07:42 HPI: The patient is a 54yo F presents with left pink eye with clear tearing in left eye since yesterday. Denies blurry vision or change in vision. Denies any other symptoms ROS: NEGATIVE: difficulty breathing, shortness of breath, chest pain, lightheadedness, dizziness, nausea, vomiting and diarrhea. Other 12 point ROS reviewed and negative. Exam: General: NAD, Well-Appearing, Awake, Alert Oriented x3. Vital signs stable. ENT: moderately injected left conjunctiva. No rhinorrhea or nasal congestion. Neck: FROM, no midline tenderness. Lungs: Clear to auscultation bilaterally without wheezes, rhonchi or rales. Normal excursion. Patient is able to speak in full sentences. Heart: HR: Regular rhythm, S1-S2 present, no murmurs rubs or gallops. Abdomen: Non-distended. MSK/Extremities: No decrease ROM, No obvious deformities. No obvious cyanosis noted. Neuro: Normal Gait, Cranial Nerves II through XII Grossly Intact. Skin: No obvious rashes, bruising. Color Normal Appearing. ASSESSMENT: left Acute conjunctivitis Treatment: Rx Zaditor drops for viral dermatitis keep eye clean and refrain from rubbing eye f/u with ophthalmology Discharge Disposition - Diagnosis Conjunctivitis Qualifiers: Conjunctivitis type: acute Acute conjunctivitis type: viral Laterality: left Qualified Code(s): B30.9 - Viral conjunctivitis, unspecified - Discharge Dispostion Disposition: HOME Condition at time of disposition: Stable Decision to Admit order: No - Prescriptions Prescriptions: Ketotifen Fumarate [Zaditor] 2 drop OS Q6H 5 Days #1 bottle - Referrals Referrals: Christopher Prieto MD [Staff Physician] - - Patient Instructions Printed Discharge Instructions: DI for Conjunctivitis Additional Instructions: us eye drops as prescribed. refrain from rubbing eye. no contact lens use until symptoms has improved. Follow-up with referred sales exhibitor if symptoms persists - Post Discharge Activity Work/School Note: Back to Work
[2020-04-23 07:50] VITALS: BP 137/82; PULSE 93; TEMP 98; BMI 41.8
== END 2020-04-23 08:00 | disposition home or self-care (01) ==
LOC: JER 07:26
DX: B30.9 Viral conjunctivitis, unspecified (principal)
CPT/HCPCS: 99282-25

== ENCOUNTER 2021-07-14 13:58 | Emergency (ER) | payer OTHER ==
[2021-07-14 14:10] VITALS: BP 136/78; PULSE 86; TEMP 98.5; BMI 39.6
[2021-07-14] MEDS ORDERED: NAPROXEN 500 MG TABLET PO ONE (15:03)
[2021-07-14] MEDS ORDERED: NAPROXEN 500 MG TABLET ONE (15:04)
== END 2021-07-14 16:29 | disposition home or self-care (01) ==
LOC: JERFT 13:58
DX: I87.2 Venous insufficiency (chronic) (peripheral) (principal); R60.0 Localized edema
CPT/HCPCS: 93971-TC; 99283-25

== ENCOUNTER 2022-09-19 18:00 | Emergency (ER) | payer OTHER ==
[2022-09-19 18:14] VITALS: BP 175/75; PULSE 85; RESP 18; TEMP 98.2; BMI 43.4
[2022-09-19] MEDS ORDERED: SODIUM CHLORIDE 0.9% 1000 ML INFUS.BAG IV ONE (18:42)
[2022-09-19] MEDS ORDERED: ONDANSETRON 4 MG/2 ML VIAL IVPUSH ONE (18:43)
[2022-09-19] MEDS ORDERED: MECLIZINE HCL 25 MG TABLET (FP) PO ONE (18:43)
[2022-09-19] MEDS ORDERED: MECLIZINE HCL 25 MG TABLET (FP) ONE (19:07)
[2022-09-19] MEDS ORDERED: METOCLOPRAMIDE HCL INJECTION 10 MG/2 ML VIAL ONE (19:08)
[2022-09-19 20:17] LABS: INR 1.11 (0.83-1.09); PROTHROMBIN TIME (PATIENT) 12.8 SEC (9.7-13.0)
[2022-09-19 21:06] LABS: ACTIVATED PTT 29.4 SECONDS (25.2-36.5)
[2022-09-19 21:16] LABS: BASO % 0.4 % (0-2.0); EOS % 0.2 % (0-4.5); HEMATOCRIT 38.6 % (32.4-45.2); HEMOGLOBIN 12.1 GM/dL (10.7-15.3); LYMPH % 10.3 % (8-40); MCH 23.8 pg (25.7-33.7); MCHC 31.3 g/dl (32.0-36.0); MEAN CELL VOLUME 75.9 fl (80-96); MEAN PLT VOLUME 9.5 fl (7.5-11.1); MONO % 5.2 % (3.8-10.2); NEUT % 83.9 % (42.8-82.8); PLATELET COUNT 260 10^3/uL (134-434); RBC 5.08 M/mm3 (3.60-5.2); RDW 15.3 % (11.6-15.6); WHITE BLOOD COUNT 14.9 K/mm3 (4.0-10.0)
[2022-09-19 21:32] LABS: CALCIUM 9.2 mg/dL (8.5-10.1)
[2022-09-19 21:33] LABS: ALBUMIN 3.5 g/dl (3.4-5.0); BLOOD UREA NITROGEN 10.6 mg/dL (7-18)
[2022-09-19 21:36] LABS: CREATININE 0.7 mg/dL (0.55-1.3)
[2022-09-19 21:38] LABS: BILIRUBIN,TOTAL 0.4 mg/dL (0.2-1); TOT PROT 7.9 g/dl (6.4-8.2)
[2022-09-19 23:01] LABS: PH,URINE 5.5 (5.0-8.0); URINE APPEARANCE CLEAR; URINE BILIRUBIN NEGATIVE (NEGATIVE); URINE COLOR YELLOW; URINE GLUCOSE (UA) NEGATIVE (NEGATIVE); URINE KETONE TRACE (NEGATIVE); URINE LEUK ESTERASE NEGATIVE (NEGATIVE); URINE NITRITE NEGATIVE (NEGATIVE); URINE PROTEIN TRACE (NEGATIVE); URINE UROBILINOGEN 0.2 mg/dL (0.2-1.0)
== END 2022-09-19 22:54 | disposition home or self-care (01) ==
LOC: JER 18:00
PROC: 3E033GC Introduction of Other Therapeutic Substance into Peripheral Vein, Percutaneous Approach (ICD-10-PCS; principal; 2022-09-19)
DX: R42 Dizziness and giddiness (principal)
CPT/HCPCS: 0241U-QW; 36415; 70450-TC; 80053; 81003; 85025; 85610; 85730; 87086; 93005; 93010; 99285-25

== ENCOUNTER 2023-07-21 08:11 | Emergency (ER) | payer OTHER ==
[2023-07-21 08:16] VITALS: BP 162/93; PULSE 84; RESP 18; TEMP 98; BMI 45.3
[2023-07-21] MEDS ORDERED: IBUPROFEN 600 MG TABLET (FP) PO ONE ×2 (08:43→08:45)
== END 2023-07-21 09:08 | disposition home or self-care (01) ==
LOC: JERFT 08:11
DX: M79.601 Pain in right arm (principal); R20.2 Paresthesia of skin; M25.521 Pain in right elbow; G56.81 Other specified mononeuropathies of right upper limb; S53.401A Unspecified sprain of right elbow, initial encounter; X58.XXXA Exposure to other specified factors, initial encounter
CPT/HCPCS: 99283-25